=== PATIENT | male | born 1935 | race Caucasian/White ===

== ENCOUNTER → 2016-05-13 | Outpatient (CLI) | payer OTHER | LOC: FIMAGING 13:34 | PROVIDERS: ATTEND Physician Assistant Surgical | DX: Z09 Encounter for follow-up examination after completed treatment for conditions other than malignant neoplasm (principal); Z98.1 Arthrodesis status ==

== ENCOUNTER 2016-07-29 07:13 | Observation (INO) | payer OTHER ==
[2016-07-29] MEDS ORDERED: DIAZEPAM 5 MG TAB PO ONE (07:15)
[2016-07-29] MEDS ORDERED: FAMOTIDINE 20 MG TAB PO ONE (07:15)
[2016-07-29] MEDS ORDERED: diphenhydrAMINE 25 MG CAP PO ONE (07:15)
[2016-07-29] MEDS ORDERED: NS 1,000 ML IV ONE (07:15)
[2016-07-29] MEDS ORDERED: ASPIRIN EC 325 MG TAB PO ONE (07:15)
--- NOTE | 2016-07-29 07:48 | CPEKG ---
Heart Rate: 79 RR Interval: 759 P-R Interval: 267 QRSD Interval: 124 QT Interval: 396 QTC Interval: 455 P [place]: 0 QRS [place]: -76 T Wave [place]: 65 EKG Severity - ABNORMAL ECG - EKG Impression: SINUS RHYTHM EKG Impression: SINUS PAUSE/ARREST WITH ATRIAL ESCAPE EKG Impression: FIRST DEGREE AV BLOCK EKG Impression: LEFT BUNDLE BRANCH BLOCK Electronically Signed By: Iveth Pizarro 29-Jul-2016 11:36:49
[2016-07-29] MEDS ORDERED: EPINEPHrine 1 MG/10 ML SYR IVP ONE (08:04)
[2016-07-29] MEDS ORDERED: methylPREDNISolone SOD SUCC 125 MG/2 ML VIAL ONE ×2 (08:04→10:08)
[2016-07-29 08:07] LABS: % IMMATURE GRANULYOCYTES 0.3 % (0.0-1.1); ABSOLUTE IMMATURE GRANULOCYTES 0.02 10^3/uL (0.00-0.10); ADD DIFF? NO; ADD MORPH? NO; ADD SCAN? NO; ATYPICAL LYMPHOCYTE FLAG 10 (0-99); FRAGMENT RBC FLAG 0 (0-99); HEMATOCRIT 41.4 % (40.0-51.0); HEMOGLOBIN 13.8 g/dL (13.7-17.5); LEFT SHIFT FLG 0 (0-99); LIPEMIA HEMOLYSIS FLAG 80 (0-99); MEAN CELL HEMOGLOBIN 31.7 pg (27.9-34.1); MEAN CELL HEMOGLOBIN CONCENTR. 33.3 g/dL (32.4-36.7); MEAN CELL VOLUME 95.2 fL (81.5-99.8); MEAN PLATELET VOLUME 11.4 fL (8.7-11.7); PLATELET CLUMPS FLAG 0 (0-99); PLATELET COUNT 169 10^3/uL (150-400); RED BLOOD CELL COUNT 4.35 10^6/uL (4.40-6.38); RED CELL DISTRIBUTION WIDTH 13.5 % (11.5-15.2)
[2016-07-29] MEDS ORDERED: methylPREDNISolone SOD SUCC 125 MG/2 ML VIAL IVP ONE (08:15)
[2016-07-29 08:20] LABS: ANION GAP 9 mEq/L (8-16); CALCIUM 9.3 mg/dL (8.5-10.4); CARBON DIOXIDE 26 mEq/l (22-31); CHLORIDE 108 mEq/L (97-110); CHOLESTEROL 193 mg/dL (140-220); CHOLESTEROL/HDL RATIO 2.97 RATIO (1.00-4.97); CREATININE 1.6 mg/dL (0.7-1.3); GLOMERULAR FILTRATION RATE 42; GLUCOSE 94 mg/dL (70-100); HIGH DENSITY LIPOPROTEIN 65 mg/dL (40-65); LDL/HDL RATIO 1.77 RATIO (1.00-3.64); LOW DENSITY LIPOPROTEIN 115 mg/dL (80-100); MAGNESIUM 2.1 mg/dL (1.6-2.3); NON-HIGH DENSITY LIPOPROTEIN 128 mg/dL (90-129); POTASSIUM 4.5 mEq/L (3.5-5.2); SODIUM 143 mEq/L (134-144); TRIGLYCERIDE 66 mg/dL (40-150); VERY LOW DENSITY LIPOPROTEINS 13 mg/dL (8-25)
[2016-07-29] MEDS ORDERED: FAMOTIDINE 20 MG/NACL 50 ML IV ONE (08:30)
[2016-07-29 08:40] LABS: INR 1.31 (0.83-1.16); PROTIME(PATIENT) 16.3 SEC (12.0-15.0)
[2016-07-29] MEDS ORDERED: LIDOCAINE 1% 30 ML SDV ONE (09:17)
[2016-07-29] MEDS ORDERED: fentaNYL 100 MCG/2 ML INJ ONE (09:18)
[2016-07-29] MEDS ORDERED: BUPIVACAINE 0.5% 30 ML SDV ONE (09:18)
[2016-07-29] MEDS ORDERED: LIDO/EPI 1% **for epidural** 30 ML SDV ONE (09:18)
[2016-07-29] MEDS ORDERED: MIDAZOLAM 2 MG/2 ML VIAL ONE (09:18)
[2016-07-29] MEDS ORDERED: ceFAZolin 2 GM/DEXTROSE 100 ML IV ONE (09:30)
[2016-07-29] MEDS ORDERED: BACITRACIN IRRIGATION/NS 50,000 UNITS/1,000 ML BTL IRR ONE (09:30)
[2016-07-29] MEDS ORDERED: IOPAMIDOL (ISOVUE-300) 150 ML BTL ONE (10:06)
--- NOTE | 2016-07-29 11:33 | CPEKG ---
Heart Rate: 66 RR Interval: 909 P-R Interval: 168 QRSD Interval: 140 QT Interval: 468 QTC Interval: 491 P [place]: 0 QRS [place]: -8 T Wave [place]: 261 EKG Severity - ABNORMAL ECG - EKG Impression: A-V DUAL-PACED RHYTHM WITH SOME INHIBITION Electronically Signed By: Iveth Pizarro 29-Jul-2016 11:36:58
--- NOTE | 2016-07-29 12:36 | SUROPNOTE ---
[facility] Operative Report - Surgery PROCEDURE: PPM IMPLANT VENOGRAM INDICATION: SICK SINUS SYNDROME PROCEDURE DETAILS: After consent was obtained, the patient was brought to the cardiac laborer/key man and placed on the table in the usual sterile fashion. Initial intent was to refrain from use of contrast agents, but the patient was premedicated regardless. Some minor difficulty was noted with threading wire through the needle to access subclavian vein, so a venogram was performed to ensure patency of the vessel. No reaction to the contrast was noted (the patient was monitored with vital and visual assessment). Two separate sticks were performed for access to the subclavian vein, then a pocket to the left subclavian region was created. Initial incision with a #12 blade, followed by bovie and blunt dissection for depth and breath. Haemostasis was achieved and monitoring for bleeding over the course of the case. A raytech soaked in Bacitracin was placed in the pocket as the leads were placed. Ventricular lead was placed first. Ventricular lead parameters: SJM Tendril STS M#: [id number] SN [id number] was placed and actively fixated. RV capture to 0.4V @ 0.5ms, 0.6 mA; Sensing at 24.2 mV, 5.7 V/s and Impedance to 619 ohms This lead was sutured into position The atrial lead was placed next. Atrial lead parameters: SJM Tendril STS M#: [id number] SN [id number] was placed and actively fixated. RA capture to 2.0V @0.5ms, 4.7mA; Sensing at 2.9 mV, 0.7 V/s and Impedance to 432 ohms This lead was sutured into position The raytech was explanted from the pocket and the pocket was flushed numerous times. Reinspection for haemostasis was undertaken. The generator was placed and sutured into position. Generator data: M#: [id number] SN: [id number]. The device was sutured into position. The pocket was closed with 2-0, 3-0, and 4-0. No complications. Fluoroscopic review of the pocket was undertaken. Post PPM implant CXR was grossly normal.
[2016-07-29] MEDS ORDERED: WARFARIN SODIUM 3 MG TAB PO SCH (17:00)
[2016-07-29] MEDS ORDERED: WARFARIN SODIUM 5 MG TAB PO SCH (18:30)
[2016-07-29] MEDS ORDERED: CHOLECALCIFEROL VIT D3 1,000 UNITS TAB PO SCH (21:00)
[2016-07-29] MEDS ORDERED: TAMSULOSIN HCL 0.4 MG CAP PO SCH (21:00)
[2016-07-29] MEDS ORDERED: LEVOTHYROXINE 88 MCG TAB PO SCH (21:00)
[2016-07-30 05:25] LABS: % IMMATURE GRANULYOCYTES 0.2 % (0.0-1.1); ABSOLUTE IMMATURE GRANULOCYTES 0.02 10^3/uL (0.00-0.10); ADD DIFF? NO; ADD MORPH? NO; ADD SCAN? NO; ATYPICAL LYMPHOCYTE FLAG 0 (0-99); FRAGMENT RBC FLAG 0 (0-99); HEMATOCRIT 37.2 % (40.0-51.0); HEMOGLOBIN 12.4 g/dL (13.7-17.5); LEFT SHIFT FLG 0 (0-99); LIPEMIA HEMOLYSIS FLAG 80 (0-99); MEAN CELL HEMOGLOBIN 31.6 pg (27.9-34.1); MEAN CELL HEMOGLOBIN CONCENTR. 33.3 g/dL (32.4-36.7); MEAN CELL VOLUME 94.9 fL (81.5-99.8); MEAN PLATELET VOLUME 11.8 fL (8.7-11.7); PLATELET CLUMPS FLAG 0 (0-99); PLATELET COUNT 158 10^3/uL (150-400); RED BLOOD CELL COUNT 3.92 10^6/uL (4.40-6.38); RED CELL DISTRIBUTION WIDTH 13.6 % (11.5-15.2)
[2016-07-30 05:33] LABS: INR 1.29 (0.83-1.16); PROTIME(PATIENT) 16.1 SEC (12.0-15.0)
[2016-07-30 05:55] LABS: ANION GAP 10 mEq/L (8-16); CALCIUM 9.1 mg/dL (8.5-10.4); CARBON DIOXIDE 23 mEq/l (22-31); CHLORIDE 109 mEq/L (97-110); CREATININE 1.5 mg/dL (0.7-1.3); GLOMERULAR FILTRATION RATE 45; GLUCOSE 100 mg/dL (70-100); POTASSIUM 4.9 mEq/L (3.5-5.2); SODIUM 142 mEq/L (134-144)
[2016-07-30 07:23] VITALS: BP 133/87; PULSE 77; RESP 14; TEMP 97.5; O2SAT 97
[2016-07-30] MEDS ORDERED: POLYETHYLENE GLYCOL 3350 17 GM PKT PO SCH (09:00)
--- NOTE | 2016-07-30 09:46 | CPEKG ---
Heart Rate: 60 RR Interval: 1000 QRSD Interval: 150 QT Interval: 464 QTC Interval: 464 QRS [place]: 2 T Wave [place]: 253 EKG Severity - ABNORMAL ECG - EKG Impression: ATRIAL FIBRILLATION EKG Impression: LEFT BUNDLE BRANCH BLOCK Electronically Signed By: Iveth Pizarro 30-Jul-2016 12:14:11
--- NOTE | 2016-07-30 11:05 | GDS ---
[f rep st] DISCHARGE SUMMARY DISCHARGE DIAGNOSES: 1. Intermittent 2:1 AV block with heart rates in the low 30s. 2. Type 1 second-degree heart block. 3. Progressive fatigue. 4. Paroxysmal atrial fibrillation. 5. Hypertension. 6. History of deep venous thrombosis, on long-term anticoagulation. 7. Elevated creatinine, likely due to a decreased oral intake. 8. Permanent pacemaker insertion in this admission with a dual-chamber St. Je device. FOLLOWUP: 1. Follow up INR with Dr. Barone's office. 2. Follow up creatinine with PCP's office. 3. Follow up pacer and wound check in our office in 1 week's time. 4. Follow up with Dr. Moyer as scheduled. PROCEDURES: 1. 07/29/2016 dual-chamber permanent pacer implantation with a St. Je device. 2. Serial chest x-rays. 3. Serial EKGs. HISTORY OF PRESENT ILLNESS: Please see dictated H and P from our office for complete details. In [facility], the patient is a 80-year-old male who presented with progressive fatigue. He proceeded to a 2 -week event monitor that showed type 1 second-degree heart block, intermittent 2:1 AV block, and hea rt rate in the low 30s. Patient was offered permanent pacing and also had a 2nd opinion with Dr. Rick crenshaw. He agreed to permanent pacer implantation. HOSPITAL COURSE: 1. Sick sinus syndrome. He is status post permanent pacer. 2. Paroxysmal atrial fibrillation. This was seen on telemetry. He is managed with Coumadin. Unsu re if rate controlling agents will be needed in the future. This will be monitored by his pacemaker . 3. Elevated creatinine. His creatinine is 1.5. Previous creatinines were in the 1 range. This ca n be followed as an outpatient. 4. Coagulopathy. He has been on Coumadin for a DVT. His creatinine on day of discharge is 1.3. H e will need followup INR with his PCP's office. RESULTS PENDING: None. PHYSICAL EXAMINATION: VITAL SIGNS: On day of discharge, blood pressure 133/87, heart rate 77, resp irations 14, O2 saturation 97% on room air, temp of 97.5 degrees Fahrenheit. GENERAL: He is a very pleasant male in no apparent distress. EYES: PERRL. HEART: Regular rate and rhythm. LUNGS: Cl ear. Left pectoral pacer site with some ecchymosis and dry blood. No evidence of active bleeding. No tenderness on palpation. No edema around pacer site. LABORATORY DATA: CBC: On day of discharge, WBC 8.93, hemoglobin 12.4, hematocrit 37.2, platelet co unt of 158. BMP: Sodium 142, potassium 4.9, chloride 109, CO2 23, BUN 30, creatinine 1.5, magnesiu m 2.1. Triglycerides 66, cholesterol 193, LDL 115, HDL 65. DIET: Per previous. ACTIVITY: Left arm precautions were reviewed. /[id number]/MODL
[2016-08-01] MEDS ORDERED: WARFARIN SODIUM 3 MG TAB PO SCH (17:00)
== END 2016-07-30 11:00 | disposition home or self-care (01) ==
LOC: FCATH 07:13 → F2W 11:55
PROVIDERS: ADMIT Internal Medicine Cardiovascular Disease; ATTEND Internal Medicine Cardiovascular Disease
DX: I44.1 Atrioventricular block, second degree (principal); I48.0 Paroxysmal atrial fibrillation; I49.5 Sick sinus syndrome; R53.83 Other fatigue; R79.89 Other specified abnormal findings of blood chemistry; I10 Essential (primary) hypertension; E03.9 Hypothyroidism, unspecified; Z79.01 Long term (current) use of anticoagulants; Z86.718 Personal history of other venous thrombosis and embolism
CPT/HCPCS: 33208; 71010; 71020; 93005; C1785; C1898; G0378; J0690; J1200; J2250; J3010; Q9967

== ENCOUNTER → 2017-01-27 | Outpatient (CLI) | payer OTHER | LOC: FIMAGING 12:08 | PROVIDERS: ATTEND Internal Medicine | DX: N26.1 Atrophy of kidney (terminal) (principal) ==

== ENCOUNTER → 2017-08-18 | Outpatient (CLI) | payer OTHER | LOC: FIMAGING 12:30 | PROVIDERS: ATTEND Internal Medicine Hematology & Oncology | DX: Z12.89 Encounter for screening for malignant neoplasm of other sites (principal); Z95.0 Presence of cardiac pacemaker; Z98.1 Arthrodesis status; M51.84 Other intervertebral disc disorders, thoracic region; M17.11 Unilateral primary osteoarthritis, right knee ==

== ENCOUNTER 2017-10-01 20:30 | Emergency (ER) | payer OTHER ==
--- NOTE | 2017-10-01 21:39 | EDPHY ---
H & P Smoking Status: Former smoker Time Seen by Provider: 10/01/17 21:35 HPI/ROS: CHIEF COMPLAINT: Left leg pain HISTORY OF PRESENT ILLNESS: The patient is a 82-year-old male here chief complaint of left upper and lower leg pain after he tripped on the carpet and fell 1 hr prior to arrival. He has been able to bear weight since but with significant pain. 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 States he is having no chest pain or shortness of breath prior to tripping and falling. There was no syncope and he did not hit his head. REVIEW OF SYSTEMS: Constitutional: No fever, no chills. Eyes: No discharge. ENT: No sore throat. Cardiovascular: No chest pain, no palpitations. Respiratory: No cough, no shortness of breath. Gastrointestinal: No abdominal pain, no vomiting. Genitourinary: No hematuria. Musculoskeletal: No back pain. Skin: No rashes. Neurological: No headache. (Igor Morse) Physical Exam: General Appearance: Alert and no distress. Eyes: Pupils equal and round no injection. Respiratory: Chest is nontender, lungs are clear to auscultation. Cardiac: regular rate and rhythm. Gastrointestinal: Abdomen is soft and nontender, no masses, bowel sounds normal. Musculoskeletal: Neck is supple and nontender. Mild pain with range of motion of the left hip. Ecchymosis and tenderness to the left mid tib-fib region. Neurovascular intact distally. No open skin lesions. Extremities have full range of motion and are nontender. Skin: No rashes or lesions. (Igor Morse) Constitutional: Initial Vital Signs Temperature (C) 36.8 C 10/01/17 20:35 Heart Rate 106 H 10/01/17 20:35 Respiratory Rate 20 10/01/17 20:35 Blood Pressure 130/90 H 10/01/17 20:35 O2 Sat (%) 97 10/01/17 20:35 O2 Delivery Mode Room Air Allergies/Adverse Reactions: contact metal agent Allergy (Verified 05/20/15 18:05) Iodinated Contrast- Oral and IV Dye [Iodinated Contrast Media - IV Dye] Allergy (Verified 05/20/15 18:05) iodine Allergy (Verified 05/20/15 18:05) Home Medications: Medication Instructions Recorded Polyethylene Glycol 3350 [Miralax 17 gm PO DAILY #0 pkt 06/04/15 17 gm (*)] Levothyroxine Sodium 88 mcg PO HS #30 tablet 06/28/15 Tamsulosin HCl [Flomax 0.4 MG (*)] 0.8 mg PO HS #60 cap 06/28/15 Acetaminophen [Tylenol 325mg (*)] 650 mg PO QID PRN 07/29/16 Cholecalciferol Vit D3 [Vitamin D3 2,000 units PO HS 07/29/16 2000 units] Warfarin Sodium [Coumadin 3MG (*)] 6 mg PO MOTH@16 07/29/16 Warfarin Sodium [Coumadin 5MG (*)] 5 mg PO SUTUWEFRSA@07/29/16 Medical Decision Making ED Course/Re-evaluation: 82-year-old male here with leg pain after trip and fall at home. X-rays reveal no hip fracture, femur fracture, tibial plateau fracture, tib-fib fracture. He is given no pain medication here in the ER and he was able to ambulate without difficulty. His INR was slightly low 1.8 agrees to call follow up with his primary care doctor for further management of this. (Igor Morse) The patient was evaluated and managed by the physician assistant controller. I have reviewed this chart and I agree with the findings and plan of care as documented , as indicated by my signature. I am the secondary supervising physician. ( Rosio Wilkins) Departure - Departure Disposition: Home, Routine, Self-Care Clinical Impression: Hip strain, Contusion, lower leg Condition: Good Instructions: Hematoma (ED) Additional Instructions: Please return to the emergency room for worsening pain, swelling, numbness with changes in pharmaceutical specialty representative calor or other worrisome symptoms. Referrals: Bridgett Barone MD [Primary Care Provider] - As per Instructions
[2017-10-01 21:50] LABS: INR 1.81 (0.83-1.16); PROTIME(PATIENT) 21.1 SEC (12.0-15.0)
[2017-10-01 23:16] VITALS: BP 106/72
== END 2017-10-01 23:14 | disposition home or self-care (01) ==
DX: S76.012A Strain of muscle, fascia and tendon of left hip, initial encounter (principal); S80.12XA Contusion of left lower leg, initial encounter; Z79.01 Long term (current) use of anticoagulants; Z87.891 Personal history of nicotine dependence; W01.0XXA Fall on same level from slipping, tripping and stumbling without subsequent striking against object, initial encounter; Y92.009 Unspecified place in unspecified non-institutional (private) residence as the place of occurrence of the external cause